=== PATIENT | female | born 1945 | race Caucasian/White ===

== ENCOUNTER 2021-11-15 12:09 | Outpatient (CLI) | payer MEDICARE ==
[2021-11-15 13:41] LABS: #Eosinphils 0.3 10x3/uL (0.0-0.5); #Monocytes 0.4 10x3/uL (0.0-1.1); #Neutrophils 3.2 10x3/uL (1.5-8.4); %Basophils 0.7 % (0.0-2.0); %Eosinophils 5.4 % (0.0-6.0); %Lymphocytes 30.5 % (18.0-47.0); %Monocytes 7.7 % (0.0-10.0); %Neutrophils 55.4 % (40.0-75.0); Hemoglobin 12.3 g/dL (12.0-15.5); Mean Corpuscular HGB CONC 32.5 g/dL (32.0-36.0); Mean Corpuscular Hemoglobin 29.4 pg (27.0-33.0); Mean Corpuscular Volume 90.7 fl (81.6-98.3); Mean Platelet Volume 12.1 fl (7.4-10.4); Platelet Count 213 10x3/uL (150-450); RBC Distribution Width 12.7 % (11.5-14.5); Red Blood Cell (RBC) Count 4.18 10x6/uL (3.90-5.03); White Blood Cell (WBC) Count 5.7 10x3/uL (3.5-10.5)
[2021-11-15 14:03] LABS: PTT 25.9 sec (22.0-33.0); Prothrombin Time 10.5 sec (9.5-12.1)
[2021-11-15 14:04] LABS: Anion Gap 15 mmol/L (10-20); BUN (Urea Nitrogen) 11 mg/dL (9.8-20.1); Calc. Creatinine Clearance 0 mL/min (70-130); Calcium 9.7 mg/dL (7.8-10.44); Carbon Dioxide 22 mmol/L (23-31); Chloride 107 mmol/L (98-107); Estimated GFR 83; Glucose 99 mg/dL (83-110); Potassium 4.4 mmol/L (3.5-5.1); Sodium 140 mmol/L (136-145)
== END 2021-11-15 12:10 | disposition home or self-care (01) ==
LOC: LABBT 12:09
PROVIDERS: ATTEND Internal Medicine Cardiovascular Disease
DX: Z01.812 Encounter for preprocedural laboratory examination (principal); Z20.822 Contact with and (suspected) exposure to COVID-19
CPT/HCPCS: 80048; 85025; 85610; 85730; 87811

== ENCOUNTER 2021-11-19 11:09 | Day surgery (SDC) | payer MEDICARE ==
[2021-11-18 11:53] VITALS: BMI 22.1
[2021-11-19] MEDS ORDERED: PROPOFOL 200 MG/20 ML VIAL ONE (13:10)
== END 2021-11-19 14:20 | disposition home or self-care (01) ==
LOC: SDC 11:09
PROVIDERS: ATTEND Internal Medicine Cardiovascular Disease
DX: I33.0 Acute and subacute infective endocarditis (principal); I08.3 Combined rheumatic disorders of mitral, aortic and tricuspid valves; E03.9 Hypothyroidism, unspecified; K74.60 Unspecified cirrhosis of liver; M06.9 Rheumatoid arthritis, unspecified; I10 Essential (primary) hypertension; L40.50 Arthropathic psoriasis, unspecified; I73.00 Raynaud's syndrome without gangrene; K12.2 Cellulitis and abscess of mouth; Z79.899 Other long term (current) drug therapy; Z88.0 Allergy status to penicillin; Z88.2 Allergy status to sulfonamides; Z20.822 Contact with and (suspected) exposure to COVID-19
CPT/HCPCS: 93312; J2704